=== PATIENT | female | born 1965 | race Caucasian/White ===

== ENCOUNTER 2024-04-24 11:19 | Emergency (ER) | payer SELFPAY ==
[~2024-04-24] VITALS: Ht 162.5 cm; Wt 89.8 kg
[2024-04-24] MEDS ORDERED: SODIUM CHLORIDE 0.9% 1,000 ML IV ONE (11:45)
[2024-04-24] MEDS ORDERED: MORPHINE Sulfate 2 MG/ML SYR IV ONE (11:45)
[2024-04-24] MEDS ORDERED: diphenhydrAMINE hydrochloride 50 MG/ML VIAL IV ONE (11:45)
[2024-04-24] MEDS ORDERED: Metoclopramide Hydrochloride 10 MG/2 ML AMP IV ONE (11:45)
[2024-04-24 12:13] LABS: BILIRUBIN Negative (Negative); BLOOD Negative (Negative); CLARITY Clear (Clear); COLOR Yellow (Yellow); GLUCOSE Negative (Negative); KETONE Negative (Negative); LEUKO ESTERASE Negative (Negative); NITRITE Negative (Negative)
[2024-04-24 12:13] LABS: BASO % 0.2 % (0.0-1.0); EOS # 0.1 10*3/uL (0.0-0.4); EOS % 1.1 % (1.0-4.0); HEMATOCRIT 45.1 % (37.0-47.0); LYMPH # 1.7 10*3/uL (1.3-4.4); LYMPH % 18.6 % (27.0-41.0); MEAN CELL VOLUME 93.6 fl (81.0-99.0); MEAN CORPUSCULAR HGB 29.9 pg (27.0-31.0); MEAN CORPUSCULAR HGB CONC 31.9 g/dl (33.0-37.0); MONO # 0.4 10*3/uL (0.1-1.0); MONO % 4.6 % (3.0-9.0); NEUT # 6.8 10*3/uL (2.3-7.9); NEUT % 75.2 % (47.0-73.0); PLATELET COUNT AUTOMATED 263 10*3/uL (130-400); RED BLOOD COUNT 4.82 10*6/uL (4.10-5.10); RED CELL DISTRI WIDTH 13.5 % (0-14.5)
[2024-04-24] MEDS ORDERED: IOHEXOL 300 MG/ML 100 ML VIAL IV ONE (12:20)
[2024-04-24 12:22] LABS: RBC 0-2 rbc/hpf (0-2); WBC 0-2 wbc/hpf (0-5)
[2024-04-24 12:32] LABS: ALKALINE PHOSPHATASE 91 U/L (46-116); BUN 11 mg/dl (9-23); CHLORIDE 99 mmol/L (98-107); LIPASE 55 U/L (12-53); POTASSIUM 3.7 mmol/L (3.4-5.1); SGPT/ALT 23 U/L (5-49); TOTAL PROTEIN 7.7 gm/dL (6.0-8.0)
[2024-04-24] MEDS ORDERED: CIPRO500 MG PO (15:24)
[2024-04-24] MEDS ORDERED: MELOXICAM15 MG PO (15:24)
[2024-04-24] MEDS ORDERED: Ondansetron4 MG PO (15:24)
== END 2024-04-24 15:27 | disposition home or self-care (01) ==
LOC: ED 11:19
PROVIDERS: Emergency Medicine
DX: R10.84 Generalized abdominal pain (principal); R11.2 Nausea with vomiting, unspecified; R19.7 Diarrhea, unspecified; Z88.0 Allergy status to penicillin; Z98.890 Other specified postprocedural states